=== PATIENT | male | born 1970 | race Caucasian/White ===

== ENCOUNTER 2018-10-13 10:36 | Emergency (ER) | payer OTHER ==
[~2018-10-13] VITALS: Ht 175.3 cm; Wt 93.9 kg
[2018-10-13 10:53] VITALS: BP 123/74
--- NOTE | 2018-10-13 10:56 | NUR ---
Patient ambulated to bed 1. RN evaluating patient at bedside.
--- NOTE | 2018-10-13 11:07 | NUR ---
48/M BIB SELF C/O LOWER BACK PAIN RADIATING TO WILLIAM LEGS X 3 DAYS. DENIES DYSURIA OR TRAUMA.MED HX: LEFT RENAL CYST, MILD DIFFUSE DEGENERATIVE DISE DISEASE. AAOX4 WITH EVEN AND STEADY GAIT; PATIENT STATES PAIN OF 9/10 AT THIS TIME.PATIENT POSITIONED FOR COMFORT; HOB ELEVATED; BEDRAILS UP X1; BED DOWN. ER MD MADE AWARE OF PT STATUS.
[2018-10-13] MEDS ORDERED: KETOROLAC 60 MG/2 ML VIAL IM ONE (11:25)
[2018-10-13] MEDS ORDERED: traMADol 50 MG TAB PO ONE (11:25)
--- NOTE | 2018-10-13 11:53 | NUR ---
Patient appears to be resting in bed. Vital Signs within normal limits. Respirations even and unlabored.
[2018-10-13 12:10] VITALS: BP 127/72
--- NOTE | 2018-10-13 12:12 | NUR ---
Patient discharged with v/s stable. Written and verbal after care instructions given and explained. Patient alert, oriented and verbalized understanding of instructions. Ambulatory with steady gait. All questions addressed prior to discharge. ID band removed. Patient advised to follow up with PMD. Rx of VOLTAREN, TRAMADOL given. Patient educated on indication of medication including possible reaction and side effects. Opportunity to ask questions provided and answered.
== END 2018-10-13 12:05 | disposition home or self-care (01) ==
LOC: MED 10:36
DX: G89.29 Other chronic pain (principal); M54.5 Low back pain; E11.9 Type 2 diabetes mellitus without complications
CPT/HCPCS: 96372; 99283; J1885

== ENCOUNTER 2021-11-20 02:23 | Emergency (ER) | payer OTHER ==
[~2021-11-20] VITALS: Ht 175.3 cm; Wt 82.1 kg
[2021-11-20 02:28] VITALS: BP 114/87
--- NOTE | 2021-11-20 02:34 | NUR ---
PATIENT W/C ASSIST TO BED 1
--- NOTE | 2021-11-20 02:55 | NUR ---
RECEIVED IN BED 1 WITH C/O LOW BACK PAIN STARTED THURSDAY AND PROGRESSED. SHARP PAIN THAT GOES DOWN THE LEFT LEG. WAS AT PRIMARY, DX WITH SCIATICA, AND FELT BETTER WHEN PT WAS GIVEN A SHOT BUT PAIN IS PERSISTING. PMH: SCIATICA, DM NKA
[2021-11-20] MEDS ORDERED: KETOROLAC 30 MG/ML VIAL IM ONE (03:10)
[2021-11-20] MEDS ORDERED: MORPHINE SULFATE 4 MG/ML SYR IM ONE (03:10)
--- NOTE | 2021-11-20 03:33 | NUR ---
RETURNED FROM X-RAY
[2021-11-20] MEDS ORDERED: TRAM50TA1 PO (03:57)
[2021-11-20 04:05] VITALS: BP 122/78
--- NOTE | 2021-11-20 04:05 | NUR ---
Patient discharged with v/s stable. Written and verbal after care instructions given and explained for Sciatica. Patient alert, oriented and verbalized understanding of instructions. Wheel Chair Assisted with to car. All questions addressed prior to discharge. ID band removed. Patient advised to follow up with PMD. Rx of Ultram given. Patient educated on indication of medication including possible reaction and side effects. Opportunity to ask questions provided and answered.
== END 2021-11-20 04:05 | disposition home or self-care (01) ==
LOC: MED 02:23
DX: M54.40 Lumbago with sciatica, unspecified side (principal); E11.9 Type 2 diabetes mellitus without complications
CPT/HCPCS: 72100; 96372; 99284; J1885; J2270